=== PATIENT | male | born 1995 | race Two or more races ===

== ENCOUNTER 2019-01-06 17:57 | Emergency (ER) | payer BC ==
[~2019-01-06] VITALS: Ht 177.8 cm; Wt 122.5 kg
[2019-01-06 18:17] VITALS: BP 136/77
== END 2019-01-06 19:15 | disposition home or self-care (01) ==
LOC: ER 18:01
DX: K08.89 Other specified disorders of teeth and supporting structures (principal); F10.10 Alcohol abuse, uncomplicated; Y90.9 Presence of alcohol in blood, level not specified

== ENCOUNTER 2019-10-15 15:34 | Emergency (ER) | payer BC, OTHER ==
[~2019-10-15] VITALS: Ht 177.8 cm; Wt 115.7 kg
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
[2019-10-15] MEDS ORDERED: ACETAMINOPHEN ES 500 MG TABLET ONE (15:53)
[2019-10-15] MEDS ORDERED: IBUPROFEN 400 MG TABLET ONE (15:54)
[2019-10-15] MEDS ORDERED: ACETAMINOPHEN ES 500 MG TABLET PO ONE (16:00)
[2019-10-15] MEDS ORDERED: IBUPROFEN 400 MG TABLET PO ONE (16:00)
--- NOTE | 2019-10-15 16:39 | NUR ---
Patient discharged to home in stable condition. Written and verbal after care instructions given. Patient verbalizes understanding of instruction.
[2019-10-15 16:40] VITALS: BP 136/82
== END 2019-10-15 16:41 | disposition home or self-care (01) ==
LOC: ER 15:37
DX: L55.1 Sunburn of second degree (principal)